=== PATIENT | male | born 1950 | race Caucasian/White ===

== ENCOUNTER → 2024-08-15 09:37 | Outpatient (CLI) | payer MEDICARE, SELFPAY ==
[2024-08-15 11:13] LABS: Basophils Absolute Auto 100 /uL (0-100); Eosinophils Absolute Auto 100 /uL (0-450); Eosinophils Percent Auto 2.3 % (2-4); Lymphocytes Absolute Auto 1700 /uL (1100-4500); Mean Corpuscular HGB Conc 34.8 % (30-36); Mean Corpuscular Hemoglobin 31.4 PG (26-34); Mean Corpuscular Volume 90.3 fL (80-100); Monocytes Absolute Auto 500 /uL (0-900); Monocytes Percent Auto 7.6 % (3-14); Neutrophils Absolute Auto 4000 /uL (1500-7000); Neutrophils Percent Auto 62.1 % (50-75); Platelet Count 322 X10^3/uL (150-400); Red Cell Distribution Width 13.7 % (11.6-14.8); White Blood Cell Count 6.4 X10^3/uL (4.5-11.0)
[2024-08-15 11:17] LABS: Add Manual Diff / Slide Review SLIDE REVIEW
[2024-08-15 11:19] LABS: Alanine Aminotransferase 23 IU/L (<50); Albumin 4.2 g/dL (3.5-5.0); Albumin Globulin Ratio 1.4 (1.0-2.8); Alkaline Phosphatase 63 U/L (38-126); Aspartate Aminotransferase 31 IU/L (17-59); BUN Creatinine Ratio 15.8 (6-22); Bilirubin Total 0.6 mg/dL (0.2-1.3); Blood Urea Nitrogen 15 mg/dL (9-20); Calcium 9.6 mg/dL (8.4-10.2); Carbon Dioxide 28 mmol/L (22-32); Chloride 103 mmol/L (98-107); Cholesterol 259 mg/dL (140-199); Estimated Glomerular Filt Rate > 60 mL/min (>60); Globulin 3.1 g/dL (1.7-4.1); Glucose 98 mg/dL (80-110); HDL Cholesterol 48 mg/dL (40-60); HEMOLYSIS < 15 (0-50); LDL Cholesterol Calculated 157 mg/dL (<100); Potassium 4.8 mmol/L (3.4-5.1); Sodium 137 mmol/L (137-145); Total Protein 7.3 g/dL (6.3-8.2); Triglycerides 271 mg/dL (35-150)
[2024-08-15 12:11] LABS: TSH w/ Reflex to FT4 1.68 uIU/mL (0.47-4.68)
[2024-08-15 12:48] LABS: RBC Morphology Normal Morphology
== END ==
PROVIDERS: PCP Registered Nurse Diabetes Educator; Referring Provider Registered Nurse Diabetes Educator; Visit Provider Registered Nurse Diabetes Educator
DX: R03.0 Elevated blood-pressure reading, without diagnosis of hypertension (principal); I16.0 Hypertensive urgency
CPT/HCPCS: 36415; 80053; 80061; 84443; 85025

== ENCOUNTER → 2024-10-31 12:33 | Outpatient (CLI) | payer MEDICARE, SELFPAY ==
[2024-10-31 13:36] LABS: BUN Creatinine Ratio 18.4 (6-22); Blood Urea Nitrogen 21 mg/dL (9-20); Calcium 9.6 mg/dL (8.4-10.2); Carbon Dioxide 29 mmol/L (22-32); Chloride 102 mmol/L (98-107); Estimated Glomerular Filt Rate > 60 mL/min (>60); Glucose 99 mg/dL (80-110); HEMOLYSIS < 15 (0-50); Potassium 4.1 mmol/L (3.4-5.1); Sodium 137 mmol/L (137-145)
== END ==
PROVIDERS: PCP Registered Nurse Diabetes Educator; Referring Provider Registered Nurse Diabetes Educator; Visit Provider Registered Nurse Diabetes Educator
DX: I10 Essential (primary) hypertension (principal)
CPT/HCPCS: 36415; 80048

== ENCOUNTER → 2025-09-20 12:27 | Outpatient (CLI) | payer MEDICARE, OTHER, SELFPAY ==
--- NOTE | 2025-09-20 12:29 | DI.ECHO.S_ITS ---
[facility] : : [address] : : [place] : : [id number] : : Phone: [phone] Echocardiogram Report + + :Name: KAMRYN HAUSER Study Date: 09/20/2025 Height: 73 in : :[facility] ReadingLocation: Weight: 225 lb : : Gender: Male BSA: 2.3 m2 : :: 1950 Age: 75 yrs BP: 171/101 mmHg: :Reason For Study: Cardiomegaly on CT : :Ordering Physician: SASHA, : :COURTNEY Performed By: Cooper Avila : :Referring: COURTNEY BAEZ : + + Interpretation Summary Left ventricular wall thickness is borderline increased. The ejection fraction is estimated to be 60-65%. Normal diastolic function. The right ventricle is normal in size and function. No significant valvular abnormalities. Pulmonary artery pressures cannot be estimated because of the lack of a measurable TR jet velocity but the IVC suggests a CVP of around 3 mmHg. Procedure: A two-dimensional transthoracic echocardiogram with color flow and Doppler was performed. The study quality was technically adequate. There is no prior echocardiogram noted for this patient. The patient was in normal sinus rhythm during the exam. Left Ventricle: The left ventricle is normal in size. Left ventricular wall thickness is borderline increased. Left ventricular systolic function is normal. The ejection fraction is estimated to be 60-65%. There are no focal wall motion abnormalities. Normal diastolic function. Right Ventricle: The right ventricle is normal in size and function. Atria: The left atrial size is normal. The right atrium is normal in size. There is no Doppler evidence for an interatrial shunt. Mitral Valve: The mitral valve leaflets appear to open well. There is no mitral valve stenosis. There is trace mitral regurgitation. Aortic Valve: The aortic valve is trileaflet. The aortic valve opens well. There is no aortic valve stenosis. No aortic regurgitation is present. Tricuspid Valve: The tricuspid valve leaflets are thin and pliable. There is trace tricuspid regurgitation. Pulmonary artery pressures cannot be estimated because of the lack of a measurable TR jet velocity but the IVC suggests a CVP of around 3 mmHg. Pulmonic Valve: The pulmonic valve is not well seen, but is grossly normal. There is trace pulmonic regurgitation. Great Vessels: The aortic root is normal size. The ascending aorta is normal in size. The aortic arch could not be visualized. The pulmonary artery is normal size. The IVC is of normal diameter and collapses greater than 50% with a sniff. This suggests a low right atrial pressure of 3 mm Hg. Pericardium/ Pleura There is no pericardial effusion. MMode/2D Measurements & Calculations LVIDd: 5.4 cm LVOT diam: 2.3 cm LVIDs: 3.7 cm Ao root diam: 3.6 cm FS: 31.3 % asc Aorta Diam: 4.0 cm IVSd: 1.1 cm LVPWd: 1.1 cm LV perez. diameter/BSA (cm/m^2): 2.4 LV sys. diameter/BSA (cm/m^2): 1.6 LA A2 area: 24.4 cm2 RA area: 15.3 cm2 LA A4 area: 21.1 cm2 IVC diam: 1.7 cm LA length (vol): 6.0 cm LA vol: 73.4 ml LA vol index: 32.4 ml/m2 RVD1 (basal): 2.4 cm RVD2 (mid): 2.6 cm TAPSE: 1.8 cm Doppler Measurements & Calculations Ao V2 max: 120.2 cm/sec LVOT Max Alvino: 89.2 cm/sec Ao V2 mean: 75.7 cm/sec LV V1 max P.2 mmHg Ao max P.8 mmHg LV V1 VTI: 19.2 cm Ao mean P.7 mmHg PABLO(I,D): 3.4 cm2 Ao V2 VTI: 23.1 cm PABLO(V,D): 3.0 cm2 sev ratio: 0.83 PABLO indexed to BSA (cm^2/m^2): 1.5 MV E max alvino: 73.8 cm/sec PA V2 max: 91.3 cm/sec MV A max alvino: 59.1 cm/sec PA V2 mean: 62.3 cm/sec MV E/A: 1.2 PA mean P.7 mmHg Med Peak E' Alvino: 6.2 cm/sec PA pr(Accel): 22.5 mmHg E/E' med: 12.0 Lat Peak E' Alvino: 8.7 cm/sec E/E' lat: 8.5 E/e' average: 10.2 MV dec time: 0.20 sec SV(LVOT): 77.5 ml Qp/Qs (V,Ao): 1.0/5.0 Qp/Qs (V,LVOT): 1.0/1.5 Reading Physician:06:08 PM
== END ==
PROVIDERS: PCP Registered Nurse Diabetes Educator; Referring Provider Registered Nurse Diabetes Educator; Visit Provider Registered Nurse Diabetes Educator
DX: I51.7 Cardiomegaly (principal)
CPT/HCPCS: 93306

== ENCOUNTER → 2025-11-09 10:12 | Outpatient (CLI) | payer MEDICARE, OTHER, SELFPAY ==
[2025-11-09 10:58] LABS: Add Manual Diff / Slide Review NO; Hematocrit 43.8 % (41-53); Hemoglobin 15.2 g/dL (13.5-17.5); Lymphocytes Absolute Auto 1300 /uL (1100-4500); Mean Corpuscular HGB Conc 34.7 % (30-36); Mean Corpuscular Hemoglobin 30.2 PG (26-34); Mean Corpuscular Volume 87.1 fL (80-100); Platelet Count 316 X10^3/uL (150-400)
[2025-11-09 11:16] LABS: HEMOLYSIS < 15 (0-50); Iron 104 ug/dL (49-181)
[2025-11-09 11:19] LABS: Alanine Aminotransferase 28 IU/L (<50); Albumin 4.3 g/dL (3.5-5.0); Albumin Globulin Ratio 1.5 (1.0-2.8); Alkaline Phosphatase 67 U/L (38-126); Blood Urea Nitrogen 19 mg/dL (9-20); Calcium 9.2 mg/dL (8.4-10.2); Carbon Dioxide 30 mmol/L (22-32); Chloride 100 mmol/L (98-107); Cholesterol 260 mg/dL (140-199); Estimated Glomerular Filt Rate > 60 mL/min (>60); Globulin 2.8 g/dL (1.7-4.1); Glucose 99 mg/dL (70-99); HDL Cholesterol 47 mg/dL (40-60); HEMOLYSIS < 15 (0-50); Potassium 3.3 mmol/L (3.4-5.1); Sodium 137 mmol/L (137-145); Total Protein 7.1 g/dL (6.3-8.2); Triglycerides 295 mg/dL (35-150)
[2025-11-09 11:28] LABS: Percent Iron Saturation 38 % (20-50); Total Iron Binding Capacity 273 ug/dL (261-462); Transferrin 260 mg/dL (206-381)
[2025-11-09 11:55] LABS: Ferritin 108 ng/mL (18-464)
[2025-11-09 12:09] LABS: Vitamin B12 275 pg/mL (239-931)
== END ==
PROVIDERS: PCP Registered Nurse Diabetes Educator; Referring Provider Registered Nurse Diabetes Educator; Visit Provider Registered Nurse Diabetes Educator
DX: E78.5 Hyperlipidemia, unspecified (principal); D64.9 Anemia, unspecified; I10 Essential (primary) hypertension
CPT/HCPCS: 36415; 80053; 80061; 82607; 82728; 83540; 83550; 85025